=== PATIENT | male | born 1960 | race Caucasian/White ===

== ENCOUNTER 2022-02-27 10:48 | Outpatient (CLI) | payer MEDICARE, SELFPAY ==
[2022-02-27 21:49] LABS: Creatinine Urine 51.8 mg/dL
[2022-02-27 21:51] LABS: Microalbumin Creatinine Ratio 10 mg/g (0-30); Microalbumin Urine 1 mg/dL
== END 2022-02-27 10:49 | disposition home or self-care (01) ==
PROVIDERS: PCP Family Medicine; Visit Provider Family Medicine
DX: E11.9 Type 2 diabetes mellitus without complications (principal); E78.5 Hyperlipidemia, unspecified; N18.9 Chronic kidney disease, unspecified; E11.69 Type 2 diabetes mellitus with other specified complication; I10 Essential (primary) hypertension
CPT/HCPCS: 82043; 82570

== ENCOUNTER 2022-04-23 07:31 | Outpatient (CLI) | payer OTHER, SELFPAY | END 2022-04-23 07:32 | disposition home or self-care (01) | LOC: NFLDREF 04-27 09:40 | PROVIDERS: PCP Family Medicine; Referring Provider Family Medicine; Visit Provider Family Medicine | DX: E11.69 Type 2 diabetes mellitus with other specified complication (principal); E11.9 Type 2 diabetes mellitus without complications; E78.5 Hyperlipidemia, unspecified | CPT/HCPCS: 80061 ==

== ENCOUNTER 2023-01-22 10:44 | Outpatient (CLI) | payer OTHER, SELFPAY ==
--- OUTSIDE RECORDS SUMMARY | 2023-01-22 10:48 | XMS_ITS | Continuity of Care Document ---
Author Name Unknown Organization [facility] Address [address] [place] [address] Phone Care Team Providers Care Distance Learning Technician Name Role Phone Sarbjit Lopez Unavailable Unavailable Allergies, Adverse Reactions, Alerts Substance Reaction Status Criticality latex Active No Information PENICILLIN Active No Information Procedures Procedure Date Office/Outpatient Visit,[facility] 2020 X-Ray Exam Of Neck Spine, 4+ Views Advance Directives Directive Yes / No Effective Date File Name No Information Encounters Encounter Description Practice Location Reason(s) For Visit Diagnoses Date Provider Providers Copied on Encounter [facility], [address], [place], [place], [id number], tel:[phone] No Information 1 Jocelyn Schaffer. [address], [id number] , . tel:[phone] Office/Outpat ient Visit,[facility], [address], [place], [place], [id number], tel:[phone] [facility]erv[facility]giaRadic[facility] lopathy, cervicothoracic region 1 Jocelyn Schaffer. [address], [id number] , . tel:[phone] Referring Provider: Jose Mace, [facility] [address] [place], [address]. tel:[phone] Family History Family Member Type Diagnosis Age At Onset No Information Payers Payer name Insurance type Covered green party ID Authoriza tion(s) No Information Social History Type Description Quantity Date Captured Comments Sex Male Smoking Status No Information Chief Complaint And Reason For Visit No Information Reason For Referral Reason For Referral No Information Plan Of Treatment Date Type Action Status Future Order: Radiology Order Ce rvl 4-5 Views ([id number]), Ordered on: Ordered History Of Present Illness Encounter Date Complaint History Of Prese nt Illness No Information Functional Status Date Functional Assessmen t No Information Instructions Date Instruction Additional Infor mation No Information Assessments Type Assessment Date No Information Patient Care Teams Name Effective Dates (start - stop) Status Members No Information
--- OUTSIDE RECORDS SUMMARY | 2023-01-22 10:48 | XMS_ITS | Continuity of Care Document ---
Author Name Unknown Organization [facility] Address [address] [address] Phone Care Team Providers Care Striper Machine Name Role Phone Paris Blanchard PA-C Unavailable Unavailable Procedures Procedure Date Offic Cons New/estab Mod-hi 60 Advance Directives Directive Yes / No Effective Date File Name No Information Encounters Encounter Description Practice Location Reason(s) For Visit Diagnoses Date Provider Providers Copied on Encounter [facility], [address], [id number], tel:[phone] [facility] No Information [address] [place]. [address], [address], . tel:[phone] Referring Provider: Charlie Mace, [address] [place] [address], [address]. tel:[phone] Offic Cons New/estab Mod-hi 60 [facility], [address], [id number], tel:[phone] [facility] No Information 6 [place]. [address], [address], . tel:[phone] Referring Provider: Charlie Mace, [address] [place], [address]. tel:[phone] Family History Family Member Type Diagnosis Age At Onset No Information Payers Payer name Insurance type Covered green party ID Authorrobin lamar(s) [employer] CI [id number] Social History Type Description Quantity Date Captured Comments Sex Male Smoking Status No Information Chief Complaint And Reason For Visit No Information Reason For Referral Reason For Referral No Information History Of Present Illness Encounter Date Complaint History Of Prese nt Illness No Information Functional Status Date Functional Assessmen t No Information Instructions Date Instruction Additional Infor mation No Information Assessments Type Assessment Date No Information Patient Care Teams Name Effective Dates (start - stop) Status Members No Information
== END 2023-01-22 10:45 | disposition home or self-care (01) ==
LOC: FRMREF 10:45
PROVIDERS: PCP Family Medicine; Visit Provider Family Medicine
DX: I10 Essential (primary) hypertension (principal)
CPT/HCPCS: 80053

== ENCOUNTER 2023-04-23 07:29 | Outpatient (CLI) | payer OTHER, SELFPAY | END 2023-04-23 07:30 | disposition home or self-care (01) | PROVIDERS: PCP Family Medicine; Referring Provider Family Medicine; Visit Provider Family Medicine | DX: E78.5 Hyperlipidemia, unspecified (principal) | CPT/HCPCS: 80061 ==

== ENCOUNTER 2024-02-27 09:01 | Outpatient (CLI) | payer OTHER, SELFPAY | END 2024-02-27 09:02 | disposition home or self-care (01) | PROVIDERS: PCP Family Medicine; Visit Provider Family Medicine | DX: I10 Essential (primary) hypertension (principal); Z11.59 Encounter for screening for other viral diseases; E11.69 Type 2 diabetes mellitus with other specified complication; N18.9 Chronic kidney disease, unspecified; K76.0 Fatty (change of) liver, not elsewhere classified; Z12.5 Encounter for screening for malignant neoplasm of prostate | CPT/HCPCS: 80053; 80061; 82043; 82570; 82607; 86803; G0103 ==

== ENCOUNTER 2024-11-19 10:37 | Outpatient (CLI) | payer OTHER, SELFPAY | END 2024-11-19 10:38 | disposition home or self-care (01) | LOC: FRMREF 10:38 | PROVIDERS: PCP Family Medicine; Visit Provider Family Medicine | DX: E11.22 Type 2 diabetes mellitus with diabetic chronic kidney disease (principal); I12.9 Hypertensive chronic kidney disease with stage 1 through stage 4 chronic kidney disease, or unspecified chronic kidney disease; N18.9 Chronic kidney disease, unspecified; K76.0 Fatty (change of) liver, not elsewhere classified; N17.9 Acute kidney failure, unspecified | CPT/HCPCS: 80053; 87086 ==

== ENCOUNTER 2025-01-04 15:27 | Emergency (ER) | payer MEDICARE, SELFPAY ==
[2025-01-04 15:53] VITALS: BP 129/82; PULSE 87; RESP 16; TEMP 36.6; O2SAT 95; BMI 31.3
[2025-01-04 16:00] LABS: Appearance Urine Clear (Clear)
== END 2025-01-04 17:12 | disposition home or self-care (01) ==
LOC: ED 17:04
PROVIDERS: Emergency Medicine; Emergency Provider Family Medicine; PCP Family Medicine
DX: Z53.21 Procedure and treatment not carried out due to patient leaving prior to being seen by health care provider (principal)
CPT/HCPCS: 81001; 87086